=== PATIENT | female | born 2000 | race African-American/Black ===

== ENCOUNTER 2023-05-26 11:26 | Outpatient (CLI) | payer OTHER, SELFPAY ==
[2023-05-26 12:53] LABS: HIV 1/2 Ab P24 Ag Result Negative (Negative)
[2023-05-26 13:01] LABS: Rapid Plasma Reagin Non-Reactive (NonReactive)
[2023-05-26 13:52] LABS: Hepatitis C Virus Antibody Negative (Negative)
[2023-05-30 14:12] LABS: Hepatitis Be Antigen Nonreactive
== END 2023-05-26 11:27 | disposition home or self-care (01) ==
PROVIDERS: Visit Provider Registered Nurse
DX: Z11.3 Encounter for screening for infections with a predominantly sexual mode of transmission (principal)
CPT/HCPCS: 36415; 86592; 86703; 86803; 87350; G0432